=== PATIENT | male | born 1995 | race Caucasian/White ===

== ENCOUNTER 2016-09-19 00:42 | Inpatient (IN) | payer BC ==
[~2016-09-19] VITALS: Ht 185.4 cm; Wt 65.0 kg
[~2016-09-19 00:42] MED LIST: BUSP15TA70 PO; MULT-506 PO; QUET200T2 PO; VITA100C4 PO; VITAMIN B PO
[2016-09-19 01:56] LABS: BASO ABS # 0.07 K/uL (0-0.2); COMPLETE YES; EOS % 3.5 %; HEMATOCRIT 42.3 % (42-52); IG% 0.4 %; LYMPH % 30.9 %; LYMPH ABS # 2.21 K/uL (1.2-3.4); MEAN CELL VOLUME 88.1 fL (80-100); MEAN CORPUSCULAR HEMOGLOBIN 29.2 pg (25-34); MEAN CORPUSCULAR HGB CONC 33.1 g/dl (32-36); MEAN PLATELET VOLUME 8.8 fL (7.4-10.4); MONO % 6.3 %; NEUT % 57.9 %; PLATELET COUNT 245 K/uL (130-400); WHITE BLOOD COUNT 7.16 K/uL (4.8-10.8)
[2016-09-19 02:03] LABS: BLOOD UREA NITROGEN 13 mg/dl (7-18); CREATININE 0.66 mg/dl (0.60-1.40); GLUCOSE 99 mg/dl (70-99)
[2016-09-19 02:04] LABS: ALT/SGPT 22 U/L (12-78); AST/SGOT 14 U/L (15-37); BUN/CREATININE RATIO 20.4 (10-20); CALCIUM 8.1 mg/dl (8.5-10.1); CARBON DIOXIDE 24 mmol/L (21-32); CHLORIDE 111 mmol/L (98-107); POTASSIUM 3.4 mmol/L (3.5-5.1); SODIUM 145 mmol/L (136-145)
[2016-09-19 02:09] LABS: ACETAMINOPHEN < 2 ug/ml (10-30)
[2016-09-19 02:14] LABS: ALB/GLOB RATIO 1.6 (0.9-2); ALKALINE PHOSPHATASE 73 U/L (45-117)
--- NOTE | 2016-09-19 03:06 | EMERGENCY ROOM VISIT NOTE ---
History Report prepared by Franco: Nicky Castellano Under the Supervision of: Dr. Wendy Webster D.O. First contact with patient: 02:21 Chief Complaint: MENTAL HEALTH EVALUATION History of Present Illness The patient is a 21 year old male who presents to the Emergency Room with complaints of persistent psychiatric problems that began prior to arrival. Per nursing notes, the patient arrives to the emergency department via ALS in handcuffs with police. Nursing notes report that the patient has been using LSD and acid over the past two weeks and has had several manic episodes. Nursing notes report that the patient has a history of bipolar depression and has been noncompliant with his medications. Nursing notes report that the patient has made multiple homicidal threats, stating that he will shoot multiple people with a gun. The history is limited secondary to the patient's alcohol and drug intoxication. Source of History: patient History Limited By: intoxication (drug and alcohol) Onset: prior to arrival Position: other (global) Quality: other (psychiatric problems) Timing: other (persistent) Note: Associated Symptoms: manic episodes, noncompliant with medications, homicidal threats. Review of Systems The history and ROS is limited secondary to the patient's poor cooperation and drug and alcohol intoxication. Past Medical & Surgical Medical Problems: (1) Alcohol rehabilitation (2) Anxiety (3) watermelon inspector use of drug (4) Mood disorder (5) Narcissistic personality disorder (6) Oppositional defiant disorder (7) Polysubstance dependence Family History Psychiatric condition Social History Smoking Status: Current Every Day Smoker Drug Use: marijuana, other Marital Status: single Housing Status: lives with family Occupation Status: student Current/Historical Medications No Active Prescriptions or Reported Meds Allergies Coded Allergies: No Known Allergies (Unverified , 09/19/16) Physical Exam Vital Signs Date Time Temp Pulse Resp B/P Pulse Ox O2 Delivery O2 Flow Rate FiO2 09/19/16 14:44 88 18 145/71 98 Room Air 09/19/16 07:45 77 18 125/67 98 Room Air 09/19/16 06:00 115/60 09/19/16 05:45 67 19 95 09/19/16 05:30 101/66 09/19/16 05:15 69 19 95 09/19/16 05:00 95/44 09/19/16 04:45 71 20 95 09/19/16 04:40 69 20 95 09/19/16 04:30 110/49 09/19/16 04:23 72 09/19/16 04:10 72 17 96 09/19/16 04:00 92/44 09/19/16 03:40 76 18 96 09/19/16 03:35 77 16 95 09/19/16 03:30 87/46 09/19/16 03:05 71 22 95 09/19/16 03:00 09/19/16 02:35 70 19 95 09/19/16 02:30 114/50 09/19/16 02:05 69 23 96 09/19/16 02:00 111/61 09/19/16 01:42 71 22 95 09/19/16 01:30 120/57 09/19/16 01:12 69 23 96 09/19/16 01:00 133/76 09/19/16 00:55 92 09/19/16 00:50 144/73 09/19/16 00:42 36.6 97 24 144/73 98 Room Air Physical Exam General: Asleep, smells of alcohol, does not wake to verbal or painful stimuli. HEENT: Head - normocephalic and atraumatic Pupils are 3 mm and reactive to light Extraocular eye muscles are intact, and sclera are anicteric. Nose - moist nasal mucosa without discharge. Mouth - moist buccal mucosa. Oropharynx is nonerythematous and there is no tonsillar exudate or edema noted. Neck: Supple; no JVD, nuchal rigidity, cervical lymphadenopathy. Heart: Regular rate and rhythm. There is a normal S1 and S2 with no murmurs, clicks, or gallops appreciated. Lungs: Clear to auscultation bilaterally with no wheezes, rales, or rhonchi. Abdomen: Soft, completely nontender, nondistended, with good bowel sounds. There are no palpable pulsatile masses or hepatosplenomegaly. There is no guarding, rigidity, or rebound noted. Extremities: No evidence of cyanosis, clubbing, or edema. There are easily palpable peripheral pulses. Skin: warm and dry with good turgor and no rashes. Medical Decision & Procedures Laboratory Results 09/19/16 01:07 Red Blood Count 4.80, Mean Corpuscular Volume 88.1, Mean Corpuscular Hemoglobin 29.2, Mean Corpuscular Hemoglobin Concent 33.1, Mean Platelet Volume 8.8, Neutrophils (%) (Auto) 57.9, Lymphocytes (%) (Auto) 30.9, Monocytes (%) (Auto) 6.3, Eosinophils (%) (Auto) 3.5, Basophils (%) (Auto) 1.0, Neutrophils # (Auto) 4.15, Lymphocytes # (Auto) 2.21, Monocytes # (Auto) 0.45, Eosinophils # (Auto) 0.25, Basophils # (Auto) 0.07 09/19/16 01:07 Test 09/19/16 01:07 09/19/16 07:25 White Blood Count 7.16 K/uL (4.8-10.8) Red Blood Count 4.80 M/uL (4.7-6.1) Hemoglobin 14.0 g/dL (14.0-18.0) Hematocrit 42.3 % (42-52) Mean Corpuscular Volume 88.1 fL (80-100) Mean Corpuscular Hemoglobin 29.2 pg (25-34) Mean Corpuscular Hemoglobin Concent 33.1 g/dl (32-36) Platelet Count 245 K/uL (130-400) Mean Platelet Volume 8.8 fL (7.4-10.4) Neutrophils (%) (Auto) 57.9 % Lymphocytes (%) (Auto) 30.9 % Monocytes (%) (Auto) 6.3 % Eosinophils (%) (Auto) 3.5 % Basophils (%) (Auto) 1.0 % Neutrophils # (Auto) 4.15 K/uL (1.4-6.5) Lymphocytes # (Auto) 2.21 K/uL (1.2-3.4) Monocytes # (Auto) 0.45 K/uL (0.11-0.59) Eosinophils # (Auto) 0.25 K/uL (0-0.5) Basophils # (Auto) 0.07 K/uL (0-0.2) RDW Standard Deviation 42.5 fL (36.4-46.3) RDW Coefficient of Variation 13.1 % (11.5-14.5) Immature Granulocyte % (Auto) 0.4 % Immature Granulocyte # (Auto) 0.03 K/uL (0.00-0.02) Anion Gap 10.0 mmol/L (3-11) Est Creatinine Clear Calc Drug Dose 164.1 ml/min Estimated GFR () > 150.0 Estimated GFR (Non- 139.2 BUN/Creatinine Ratio 20.4 (10-20) Calcium Level 8.1 mg/dl (8.5-10.1) Total Bilirubin 0.3 mg/dl (0.2-1) Aspartate Amino Transf (AST/SGOT) 14 U/L (15-37) Alanine Aminotransferase (ALT/SGPT) 22 U/L (12-78) Alkaline Phosphatase 73 U/L (45-117) Total Protein 6.7 gm/dl (6.4-8.2) Albumin 4.1 gm/dl (3.4-5.0) Globulin 2.6 gm/dl (2.5-4.0) Albumin/Globulin Ratio 1.6 (0.9-2) Thyroid Stimulating Hormone (TSH) 1.010 uIu/ml (0.300-4.500) Salicylates Level 1.9 mg/dl (2.8-20) Acetaminophen Level < 2 ug/ml (10-30) Ethyl Alcohol mg/dL 217.0 mg/dl (0-3) Urine Color YELLOW Urine Appearance CLEAR (CLEAR) Urine pH 5.5 (4.5-7.5) Urine Specific [place] 1.019 (1.000-1.030) Urine Protein NEG (NEG) Urine Glucose (UA) NEG (NEG) Urine Ketones NEG (NEG) Urine Occult Blood NEG (NEG) Urine Nitrite NEG (NEG) Urine Bilirubin NEG (NEG) Urine Urobilinogen NEG (NEG) Urine Leukocyte Esterase NEG (NEG) Urine Opiates Screen NEG (NEG) Urine Methadone, Qualitative NEG (NEG) Urine Barbiturates NEG (NEG) Urine Phencyclidine (PCP) Level NEG (NEG) Ur Amphetamine/Methamphetamine NEG (NEG) MDMA (Ecstasy) Screen NEG (NEG) Urine Benzodiazepines Screen NEG (NEG) Urine Cocaine Metabolite NEG (NEG) Urine Marijuana (THC) POS (NEG) Laboratory results per my review. Medications Administered Medications (Trade) Dose Ordered Sig/Alexandru Route Start Time Stop Time Status Last Admin Dose Admin Lorazepam (Ativan Tab) 1 mg NOW STAT PO 09/19/16 12:47 09/19/16 12:48 DC 09/19/16 12:47 1 MG Lorazepam (Ativan Tab) 1 mg NOW STAT SL 09/19/16 18:12 09/19/16 18:13 DC 09/19/16 18:14 1 MG ED Course 0225: Past medical records reviewed. The patient was evaluated in room B9. A complete history and physical exam was performed. Labs are drawn as above. The patient was observed on the monitoring specialist and pulse oximeter. 0350 the patient remains asleep and hemodynamically stable. I reviewed the 302 petitioning statement from the family. 0524: I reevaluated the patient and he was sound asleep, not answering any questions. 0600: The patient is medically clear for further mental health evaluation. I went to the room to speak with the patient and he would open his eyes but would not answer any of my questions. 0630: The patient was signed out to Dr. Vargas at change of shift. Medical Decision The patient is a 21 year old male who presents to the ED with persistent psychiatric problems. Differential diagnosis includes alcohol overdose, drug intoxication, head injury, hypoglycemia. Lab interpretation: negative Tylenol and aspirin, alcohol 217, normal TSH and glucose, negative LFTs, normal renal function, stable H&H, normal white blood cell count. This is a 21-year-old male patient with a history of previous drug abuse and bipolar disorder. The patient had an argument with his family today and made multiple homicidal and suicidal threats according to family. The patient remained asleep while here in the emergency department with an elevated blood alcohol level. The patient was allowed to sober up until he was medically cleared. He will then be evaluated by psychiatry. Impression Primary Impression: Homicidal ideation Additional Impression: Alcohol overdose Scribe Attestation The scribe's documentation has been prepared under my direction and personally reviewed by me in its entirety. I confirm that the note above accurately reflects all work, treatment, procedures, and medical decision making performed by me. Departure Information Dispostion Still a Patient Prescriptions No Active Prescriptions or Reported Meds Referrals Michele Foley MD (PCP) Problem Qualifiers
[2016-09-19 07:45] LABS: URINE APPEARANCE CLEAR (CLEAR); URINE BILIRUBIN NEG (NEG); URINE COLOR YELLOW; URINE NITRITE NEG (NEG); URINE PH 5.5 (4.5-7.5); URINE SPECIFIC GRAVITY 1.019 (1.000-1.030); UROBILINOGEN NEG (NEG); ZZUR CULT IF INDIC CLEAN CATCH NO
[2016-09-19 07:56] LABS: MANUAL MICROSCOPIC REQUIRED? NO; REVIEW REQ? NO
[2016-09-19 08:36] LABS: BENZODIAZEPINE, URINE NEG (NEG); COCAINE,URINE NEG (NEG); PHENCYCLIDINE, URINE NEG (NEG)
[2016-09-19] MEDS ORDERED: LORAZEPAM 1 MG TAB PO STA (12:47)
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
[2016-09-19] MEDS ORDERED: LORAZEPAM 1 MG TAB SL STA (18:12)
[2016-09-19] MEDS ORDERED: LORAZEPAM 1 MG TAB ONE (18:12)
[2016-09-19] MEDS ORDERED: BISMUTH SUBSALICYLATE PER ML OMNICELL CHARGE PO PRN (21:30)
[2016-09-19] MEDS ORDERED: MAGNESIUM HYDROXIDE SUSP 30 ML UDC PO PRN (21:30)
[2016-09-19] MEDS ORDERED: ACETAMINOPHEN 325 MG TAB PO PRN (21:30)
[2016-09-19] MEDS ORDERED: SODIUM CHLORIDE 0.65% NA SOLN 45 ML (OCEAN) PRN (21:30)
[2016-09-19] MEDS ORDERED: HALOPERIDOL 5 MG TAB PO PRN (21:30)
[2016-09-19] MEDS ORDERED: ALUMINUM/MAGNESIUM SUSP 30 ML UDC PO PRN (21:30)
[2016-09-19 21:58] VITALS: O2SAT 98
[2016-09-19] MEDS: hydrOXYzine HCL 25 MG TAB PO PRN ×2 (22:30→23:54)
[2016-09-19 23:22] VITALS: BP 165/96; PULSE 62; TEMP 36.5; BMI 18.4
--- NOTE | 2016-09-20 00:29 | EMERGENCY ROOM VISIT NOTE ---
ED Visit Note Admitted to 3S. Given Ativan PO while here.
[2016-09-20 06:51] VITALS: BP_SYST 131; BP_SYST 145; BP_DIAS 81; BP_DIAS 86; PULSE 82; PULSE 86; TEMP 36.8
[2016-09-20] MEDS: hydrOXYzine HCL 25 MG TAB PO PRN ×5 (11:10→23:51)
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
[2016-09-20] MEDS ORDERED: NICOTINE 14 MG/24 HR TDSY TD ONE (13:00)
[2016-09-20] MEDS: NICOTINE POLACRILEX 2 MG GUM MT PRN ×4 (13:21→21:59)
[2016-09-20 16:21] VITALS: Ht 185.4 cm; Wt 65.0 kg
[2016-09-21 06:56] VITALS: BP_SYST 133; BP_DIAS 85; BP_DIAS 87; PULSE 57; PULSE 62; TEMP 36.8
[2016-09-21] MEDS: NICOTINE POLACRILEX 2 MG GUM MT PRN (08:40)
[2016-09-21] MEDS ORDERED: NICOTINE 14 MG/24 HR TDSY TD SCH (09:00)
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
[2016-09-23 16:31] LABS: SYNTHETIC CANNABINOIDS QL URIN NEGATIVE (Negative)
== END 2016-09-21 12:30 | disposition home or self-care (01) | DRG 883 ==
LOC: EDBD 00:42 → C.EDB 00:50 → C.MHU 21:39
PROVIDERS: ADMIT Psychiatry & Neurology Child & Adolescent Psychiatry; ATTEND Psychiatry & Neurology Psychiatry
DX: F60.2 Antisocial personality disorder (principal); F10.10 Alcohol abuse, uncomplicated; F12.10 Cannabis abuse, uncomplicated; F17.210 Nicotine dependence, cigarettes, uncomplicated; F19.21 Other psychoactive substance dependence, in remission; R45.850 Homicidal ideations; Z86.59 Personal history of other mental and behavioral disorders

== ENCOUNTER 2016-09-29 13:42 | Emergency (ER) | payer BC ==
[~2016-09-29] VITALS: Ht 185.4 cm; Wt 66.0 kg
[2016-09-29 13:47] VITALS: Ht 185.4 cm; Wt 66.0 kg
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
[2016-09-29] MEDS ORDERED: DIPHTHERIA/TETANUS/PERTUSSIS 0.5 ML SYR/VIAL IM. ONE (14:00)
[2016-09-29] MEDS ORDERED: XYLOCAINE 1%/SOD BICARB 20 ML VIAL INFIL ONE (14:00)
[2016-09-29] MEDS ORDERED: CEPH500C PO (14:19)
[2016-09-29 14:25] VITALS: BP 155/96; PULSE 75; TEMP 36.6; O2SAT 100
[2016-09-29] MEDS ORDERED: CEPHALEXIN MONOHYDRATE 250 MG CAP PO ONE (14:30)
== END 2016-09-29 14:26 | disposition home or self-care (01) ==
LOC: C.EDB 13:43 → C.EDD 14:26
DX: S61.211A Laceration without foreign body of left index finger without damage to nail, initial encounter (principal); W45.8XXA Other foreign body or object entering through skin, initial encounter; Y93.89 Activity, other specified; F17.210 Nicotine dependence, cigarettes, uncomplicated; F60.2 Antisocial personality disorder; Z23 Encounter for immunization

== ENCOUNTER → 2017-06-03 | Outpatient (CLI) | payer OTHER ==
--- NOTE | 2017-06-03 14:52 | DIAGNOSTIC IMAGING REPORT ---
RIGHT SUBARTICULAR ULTRASOUND CLINICAL HISTORY: Right neck swelling COMPARISON STUDY: No previous studies for comparison. FINDINGS: In the area of clinical concern at the right subarticular level, there is a 20 x 8 x 5 mm lymph node. IMPRESSION: The palpable abnormality corresponds to a 20 x 8 x 5 mm lymph node. Given the age of the patient this is likely reactive. Clinical follow-up is advocated. Electronically signed by: Sam Minor M.D. 06/03/2017 2:51 PM Dictated Date/Time: 06/03/2017 2:49 PM
== END | disposition home or self-care (01) ==
LOC: C.ULTR 14:09
PROVIDERS: ATTEND Family Medicine
DX: R59.0 Localized enlarged lymph nodes (principal)

== ENCOUNTER → 2017-06-11 | Outpatient (CLI) | payer OTHER ==
[~2017-06-11] VITALS: Ht 185.4 cm; Wt 75.7 kg
[2017-06-11 13:21] VITALS: BP 134/88; PULSE 65; Ht 185.4 cm; Wt 75.7 kg
== END | disposition home or self-care (01) ==
LOC: C.NEUR 13:02
PROVIDERS: ATTEND Internal Medicine Pulmonary Disease
DX: G47.00 Insomnia, unspecified (principal); G47.21 Circadian rhythm sleep disorder, delayed sleep phase type